=== PATIENT | male | born 1945 | race Caucasian/White ===

== ENCOUNTER 2018-07-26 10:46 | Inpatient (IN) | payer MEDICARE, OTHER ==
[~2018-07-26] VITALS: Ht 170.2 cm; Wt 60.3 kg
[2018-07-26] MEDS ORDERED: ASPIRIN 81 MG CHEW TAB PO ONE ×2 (11:15→13:15)
[2018-07-26 11:32] LABS: BASOPHILS # (AUTO) 0.1 (0.0-0.1); BASOPHILS % 1.2 % (0.0-1.0); EOSINOPHILS # (AUTO) 0.4 (0.0-0.4); EOSINOPHILS % 5.3 % (0.0-6.0); HEMATOCRIT 45.5 % (38.2-49.6); HEMOGLOBIN 14.7 g/dL (14.0-18.0); LYMPHOCYTES % 29.5 % (18.0-39.1); MEAN CORPUSCULAR HEMOGLOBIN 30.3 pg (28-32); MEAN CORPUSCULAR HGB CONC 32.3 g/dL (31-35); MEAN CORPUSCULAR VOLUME 93.8 fL (81-99); MONOCYTES # (AUTO) 0.7 (0.2-0.8); MONOCYTES % 9.6 % (4.4-11.3); NEUTROPHILS # (AUTO) 3.7 (2.1-6.9); NEUTROPHILS % 54.1 % (38.7-80.0); PLATELET COUNT 224 x10e3/uL (140-360); RED BLOOD COUNT 4.85 x10e6/uL (4.3-5.7); RED CELL DISTRIBUTION WIDTH 13.2 % (11.7-14.4)
[2018-07-26 11:51] LABS: INR 0.89; PROTHROMBIN TIME 12.5 seconds (11.9-14.5)
[2018-07-26 11:52] LABS: PARTIAL THROMBOPLASTIN TIME 26.9 seconds (23.8-35.5)
--- NOTE | 2018-07-26 11:59 | Diagnostic Imaging Report ---
EXAMINATION: CHEST SINGLE (PORTABLE) INDICATION: Shortness of breath, weakness. COMPARISON: Chest radiograph 03/25/2010. FINDINGS: TUBES and LINES: None. LUNGS: Lungs are well inflated. Mild patchy right basilar opacity, likely atelectasis. There is central vascular congestion. There is no evidence of pneumonia or pulmonary edema. PLEURA: No pleural effusion or pneumothorax. HEART AND MEDIASTINUM: The cardiomediastinal silhouette is unremarkable. There are atherosclerotic calcifications within the aorta. BONES AND SOFT TISSUES: No acute osseous abnormality. There are rotator cuff anchors in the proximal right humerus. UPPER ABDOMEN: No free air under the diaphragm. IMPRESSION: No acute radiographic abnormality. Signed by: Dr. Kamla Wilkinson MD on 07/26/2018 11:56 AM
[2018-07-26 12:04] LABS: ALANINE AMINOTRANSFERASE 23 IU/L (0-55); ALBUMIN/GLOBULIN RATIO 1.4 (0.8-2.0); ALKALINE PHOSPHATASE 66 IU/L (40-150); ANION GAP 12.9 mmol/L (8-16); BLOOD UREA NITROGEN 16 mg/dL (7-26); BUN/CREATININE RATIO 19 (6-25); CALCIUM 9.9 mg/dL (8.4-10.2); CARBON DIOXIDE 27 mmol/L (22-29); CHLORIDE 102 mmol/L (98-107); CREATINE KINASE 231 IU/L (30-200); CREATININE, SERUM 0.86 mg/dL (0.72-1.25); EST GLOMERULAR FILTRATION RATE > 60 ML/MIN (60-); GLUCOSE 106 mg/dL (74-118); POTASSIUM 3.9 mmol/L (3.5-5.1); SODIUM 138 mmol/L (136-145)
[2018-07-26 12:35] LABS: INFLUENZAE A&B ANTIGEN (RAPID) NEGATIVE (NEGATIVE); STREPTOCOCCUS GRP A ANTIGEN NEGATIVE (NEGATIVE)
[2018-07-26] MEDS ORDERED: KETOROLAC TROMETHAMINE 30 MG/ML VIAL IV STA (13:01)
[2018-07-26] MEDS ORDERED: MORPHINE SULFATE 2 MG/ML SYR 1ML IV PRN (13:15)
[2018-07-26] MEDS ORDERED: MORPHINE SULFATE INJ 4 MG/ML INJ 1ML IV PRN ×3 (13:15→13:30)
[2018-07-26] MEDS ORDERED: SODIUM CHLORIDE 0.9% 1000ML 1,000 ML IV ONE (13:15)
[2018-07-26] MEDS ORDERED: ONDANSETRON HCL INJ 2MG/ML 2ML 2 MG/ML VIAL IV PRN (13:15)
--- OUTSIDE RECORDS SUMMARY | 2018-07-26 13:50 | XMS REPORT ---
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 Allergies, Adverse Reactions, Alerts This patient has no known allergies or adverse reactions. Medications This patient has no known medications. Results Test Description Test Time Test Comments Text Results Atomic Results Result Comments CHEST SINGLE (PORTABLE) 2018-07-26 11:49:00 [facility] [address] [place] [address] Patient Name: ELVER GLORIA MR #: [id number] : 1945 Age/Sex: 73/M Req #: [id number] Adm Physician: Ordered by: HECTOR RODRIGUEZ NP Report #: [id number] Location: ER Room/Bed: Procedure: [id number] DX/CHEST SINGLE (PORTABLE) Exam Date: 07/26/18 Exam Time: 1130 REPORT STATUS: Signed EXAMINATION: CHEST SINGLE (PORTABLE) INDIC ATION: Shortness of breath, weakness. COMPARISON: Chest radiograph 03/25/2010. FINDINGS: TUBES and LINES: None. LUNGS: Lungs are well inflated. Mild patchy right basilar opacity, likely atelectasis. There is central vascular congestion. There is no evidence of pneumonia or pulmonary edema. PLEURA: No pleural effusion or pneumothorax. HEART AND MEDIASTINUM: The cardiomediastinal silhouette is unremarkable. There are atherosclerotic calcifications within the aorta. BONES AND SOFT TISSUES: No acute osseous abnormality. There are rotator cuff anchors in the proximal right humerus. UPPER ABDOMEN: No free air under the diaphragm. IMPRESSION: No acute radiographic abnormality. Signed by: Dr. Nila Verduzco MD on 07/26/2018 11:56 AM Dictated By: NILA VERDUZCO MD [id number] Transcribed By: BRENNA on 07/26/18 [id number] COPY TO: HECTOR RODRIGUEZ NP
[2018-07-26 16:00] VITALS: BP 145/90
[2018-07-26 16:03] LABS: BILIRUBIN,URINE NEGATIVE (NEGATIVE); CLARITY,URINE SL CLOUDY (CLEAR); COLOR,URINE YELLOW (YELLOW); KETONES,URINE 1+ (NEGATIVE); LEUKOCYTE ESTERASE ,URINE NEGATIVE (NEGATIVE); NITRITE,URINE NEGATIVE (NEGATIVE); PROTEIN,URINE DIPSTICK NEGATIVE (NEGATIVE); URINE UROBILINOGEN 0.2 mg/dL (0.2 - 1)
[2018-07-26 16:10] VITALS: BP 145/90
[2018-07-26 16:14] LABS: BACTERIA,URINE FEW /HPF; MUCUS,URINE MODERATE (RARE)
[2018-07-26 16:25] VITALS: BP 145/90
[2018-07-26 19:07] VITALS: BP 145/90
[2018-07-26 20:00] VITALS: BP 145/56
[2018-07-26 20:14] LABS: CREATINE KINASE MB 117.2 ng/mL (0-5.0)
[2018-07-26] MEDS ORDERED: CLOPIDOGREL BISULFATE 75 MG TAB PO STA (20:29)
[2018-07-26] MEDS ORDERED: ENOXAPARIN INJ 80 MG/0.8 ML SYR SC SCH (20:29)
[2018-07-26] MEDS ORDERED: HYDRALAZINE HCL 20 MG/ML VIAL IV PRN (20:30)
[2018-07-26] MEDS ORDERED: ACETAMINOPHEN 325 MG TAB PO PRN (20:30)
[2018-07-26] MEDS ORDERED: CLOPIDOGREL BISULFATE 300 MG TAB-DO NOT STOCK PO ONE (20:45)
[2018-07-27] VITALS (40 sets, daily range): BP systolic 87–126; BP diastolic 60–92
[2018-07-27] MEDS ORDERED: MORPHINE SULFATE INJ 4 MG/ML INJ 1ML IV PRN (01:30)
[2018-07-27 03:41] LABS: BASOPHILS % 0.2 % (0.0-1.0); HEMATOCRIT 39.6 % (38.2-49.6); HEMOGLOBIN 13.8 g/dL (14.0-18.0); LYMPHOCYTES # (AUTO) 0.6 (1.0-3.2); LYMPHOCYTES % 5.4 % (18.0-39.1); MEAN CORPUSCULAR HEMOGLOBIN 31.4 pg (28-32); MEAN CORPUSCULAR HGB CONC 34.8 g/dL (31-35); MONOCYTES # (AUTO) 0.6 (0.2-0.8); MONOCYTES % 5.6 % (4.4-11.3); NEUTROPHILS # (AUTO) 9.1 (2.1-6.9); NEUTROPHILS % 88.5 % (38.7-80.0); PLATELET COUNT 195 x10e3/uL (140-360); RED CELL DISTRIBUTION WIDTH 13.3 % (11.7-14.4)
[2018-07-27 04:01] LABS: ANION GAP 14.4 mmol/L (8-16); BLOOD UREA NITROGEN 20 mg/dL (7-26); BUN/CREATININE RATIO 25 (6-25); CALCIUM 9.1 mg/dL (8.4-10.2); CARBON DIOXIDE 22 mmol/L (22-29); CHLORIDE 106 mmol/L (98-107); CREATININE, SERUM 0.79 mg/dL (0.72-1.25); EST GLOMERULAR FILTRATION RATE > 60 ML/MIN (60-); GLUCOSE 125 mg/dL (74-118); MAGNESIUM 2.1 MG/DL (1.3-2.1); POTASSIUM 4.4 mmol/L (3.5-5.1); SODIUM 138 mmol/L (136-145)
[2018-07-27 04:23] LABS: FREE T4 (FREE THYROXINE) 0.95 ng/dL (0.9-1.8); THYROID STIMULATING HORMONE 1.592 uIU/mL (0.350-4.940)
[2018-07-27 04:36] LABS: B-TYPE NATRIURETIC PEPTIDE2 315.8 pg/mL (0-100)
[2018-07-27] MEDS ORDERED: CEFTRIAXONE SOD 1 GM/NS 50 ML 50 ML IV SCH (05:45)
[2018-07-27] MEDS ORDERED: ASPIRIN 81 MG CHEW TAB PO ONE (06:00)
[2018-07-27] MEDS ORDERED: MORPHINE SULFATE 2 MG/ML SYR 1ML IV PRN (06:00)
[2018-07-27] MEDS: SODIUM CHLORIDE 0.9% 1000ML 1,000 ML IV SCH (06:23)
[2018-07-27 06:29] LABS: CREATINE KINASE MB 433.1 ng/mL (0-5.0)
--- NOTE | 2018-07-27 06:56 | Diagnostic Imaging Report ---
EXAMINATION: CHEST SINGLE (PORTABLE) INDICATION: ^CP ^[id number] ^[id number] COMPARISON: 07/26/2018 FINDINGS: AP view TUBES and LINES: None. LUNGS: Lungs are well inflated. Central vascular congestion. There is no evidence of pneumonia. PLEURA: No pleural effusion or pneumothorax. HEART AND MEDIASTINUM: The cardiomediastinal silhouette is unremarkable. BONES AND SOFT TISSUES: No acute osseous lesion. Right humeral head anchor screws are again seen. Soft tissues are unremarkable. UPPER ABDOMEN: No free air under the diaphragm. IMPRESSION: Pulmonary vascular congestion, not significantly changed from prior exam. Signed by: Dr. Andrés Harris MD on 07/27/2018 6:52 AM
[2018-07-27] MEDS ORDERED: HEPARIN SOD (PORCINE) 1000 UNIT/ML 30ML ONE (07:03)
[2018-07-27] MEDS ORDERED: NITROGLYCERIN/D5W 200 MCG/ML 0 ML ONE (07:04)
[2018-07-27] MEDS ORDERED: MIDAZOLAM HCL 2 MG/2 ML VIAL ONE (07:04)
[2018-07-27] MEDS ORDERED: SODIUM CHLORIDE 0.9% 1000ML 1,000 ML ONE (07:04)
[2018-07-27] MEDS ORDERED: LIDOCAINE HCL 2% LOCAL 20 ML VIAL ONE (07:04)
[2018-07-27] MEDS ORDERED: FENTANYL CITRATE/PF 100MCG/2 ML INJ ONE (07:04)
[2018-07-27] MEDS ORDERED: IOPAMIDOL 370 MG/ML 200 ML INFUS..BTL INJ ONE ×4 (07:04→08:26)
[2018-07-27] MEDS ORDERED: HEPARIN SOD/SOD CHLORIDE 2,000 ML ONE (07:04)
[2018-07-27] MEDS: FAMOTIDINE 20 MG TAB PO SCH ×2 (07:30→15:58)
--- NOTE | 2018-07-27 07:41 | Consultation ---
DATE OF CONSULTATION: 07/27/2018 Cardiac Consultation. REASON FOR CONSULTATION: Elevated troponin. HISTORY: A 73-year-old gentleman, very healthy, very active. He usually exercises 2 mile per day. He noted in the last few days he is unable to do it, he needs to stop so frequently because of chest tightness. [place], [place] the [place], he had severe chest pain with diaphoresis. He came to the emergency room. Admitted for further management. Consultation received late evening when troponin is elevated. The patient was given aspirin in the ER. I loaded him with Plavix and Lovenox. The patient is seen and evaluated. His symptoms are very typical for coronary artery disease. Beside that, the patient denied having any symptoms. In fact, he does have strong family history, but his grandmother from mother's side, his all uncles from mother's side all or have heart attack or during bypass surgery in their 50s and 60s. However, they did not take care of themselves and there were smoker and overweight. REVIEW OF SYSTEMS: Extensive to all systems, only pertinent positive and negative ones will be mentioned. CARDIAC: As per above. PULMONARY: No cough. No hemoptysis. GI: No hematemesis. No melena. : No hematuria. No dysuria. MUSCULOSKELETAL: No aches. No pain. GENERAL: No fever. No chills. SOCIAL HISTORY: He is nonsmoker, not alcohol drinker. . Retired from [employer]. HOME MEDICATIONS: None. ALLERGIES: NONE. PAST MEDICAL HISTORY: Right rotator cuff surgery, left inguinal hernia surgery, ear cancer and skin grafting. FAMILY HISTORY: As described above. Cancer is common in his family, but on his mother side there is strong family history of coronary artery disease. PHYSICAL EXAMINATION: VITAL SIGNS: Height of 5 feet 7 inches, weight of 162 pounds. Blood pressure 120/80, heart rate of 60, respiratory rate of 18. HEENT: Pupils are equal and reactive. NECK: No elevation of jugular venous pulsation. No bruit. CHEST: Clear to auscultation and percussion. HEART: PMI 5th left intercostal space. Normal first and second heart sound. ABDOMEN: Soft with good bowel sounds. EXTREMITIES: No cyanosis. No clubbing. No edema. LAB DATA: As per chart. IMPRESSION AND PLAN: Non-ST elevation myocardial infarction. Treatment will be urgent invasive approach. Procedure risks, benefits, alternatives are discussed and explained. Questions are answered. MD HILDA Jacobson/MODL /[id number]
[2018-07-27] MEDS ORDERED: ATROPINE SULFATE 0.1 MG/ML 10ML SYR ONE (07:52)
[2018-07-27] MEDS ORDERED: SODIUM CHLORIDE 0.9% 50ML 50 ML ONE (08:00)
[2018-07-27] MEDS ORDERED: BIVALRIUDIN 250 MG/VIAL VIAL IV ONE (08:00)
[2018-07-27] MEDS ORDERED: EPTIFIBATIDE 20 ML ONE (08:05)
[2018-07-27] MEDS ORDERED: EPTIFIBATIDE 75mg 100ML 100 ML ONE (08:16)
[2018-07-27] MEDS ORDERED: CLOPIDOGREL BISULFATE 75 MG TAB ONE (08:44)
[2018-07-27] MEDS ORDERED: ASPIRIN 325 MG TAB ONE (08:44)
[2018-07-27] MEDS ORDERED: ASPIRIN 325 MG TAB PO SCH (09:00)
[2018-07-27] MEDS ORDERED: ONDANSETRON HCL INJ 2MG/ML 2ML 2 MG/ML VIAL IV PRN (09:15)
[2018-07-27] MEDS ORDERED: EPTIFIBATIDE 75mg 100ML 100 ML IV SCH (09:30)
[2018-07-27] MEDS: CEFTRIAXONE SOD 1 GM/NS 50 ML 50 ML IV SCH (10:58)
--- NOTE | 2018-07-27 12:17 | Operative Report ---
DATE OF PROCEDURE: 07/27/2018 SURGEON: Violeta Hodges MD TITLE OF PROCEDURE: 1. Left cardiac catheterization. 2. PCI and stenting of totally occluded ostial LAD. TECHNICAL DETAILS: After the usual sterile preparation and draping procedure, intravenous Versed and fentanyl given for sedation, local xylocaine for local anesthesia. A four-Welsh sheath established in place. Mariano left 4 and 3DRC catheters to engage the coronary, pigtail for hemodynamic measurement and left ventriculogram. We elected to do PCI. We changed the sheath from 4 to 7-Welsh because of the location of totally LAD occluded coming from the left main ostially. A seven-Welsh guide XB 3.5 LAD is used. The lesion was crossed, balloon was 2.5 x 12 and then 2.5 x 20 balloon that balloon ruptured. Subsequently, we stented that lesion using 2.5 x 38 resolute amalia stent up to 24 atmosphere diameter little bit greater than 3 mm. This sheath was removed. VASCADE was not deployed because of the patient very skinny. Manual pressure was applied. The patient given Angiomax and Integrilin and he will be in Integrilin. The patient already received Plavix and he will be on maintenance aspirin and Plavix. There were no complications and no blood loss. RESULTS: A. Coronary angiogram: 1. Left main free of disease. 2. LAD very ostially 80% and totally occluded, heavily calcified arteries. 3. Circumflex, codominant artery was minimal plaquing. 4. Right coronary artery giving mainly small PDA. There are several lesion proximally at 40% distally at 50% to 60%. No collateral to the LAD noted. 5. Left ventriculogram in the right on two oblique view showed normal size ventricle, ejection fraction of 35 with akinetic, anterior and apical segments. a. Hemodynamics: Aorta pressure 120/80. LV pressure 120/34. PCI procedure, guiding catheter, seven-Welsh XB 3.5 balloon is 2.5 x 12 and 2.5 x 20, stent 2.5 x 38. These are prior to intervention at 100%, there was very large burden of clot. The clot was mashed and pushed all the way to the distal LAD. Subsequent stenting was done using 2.5 x 38 on extent up to 24 atmosphere. Lesion prior to intervention at 100% following intervention at 0%. COMPLICATION: None. BLOOD LOSS: None. MD ANTIONETTE Jacobson /[id number]
[2018-07-27] MEDS ORDERED: ZOLPIDEM TARTRATE 5 MG TAB PO PRN (21:00)
[2018-07-27] MEDS ORDERED: ATORVASTATIN 20 MG TAB PO SCH (21:00)
[2018-07-27] MEDS: ATORVASTATIN 20 MG TAB PO SCH (21:10)
[2018-07-28] VITALS (14 sets, daily range): BP systolic 85–122; BP diastolic 54–84
[2018-07-28] MEDS: SODIUM CHLORIDE 0.9% 1000ML 1,000 ML IV SCH ×2 (02:00→22:18)
[2018-07-28 05:49] LABS: BASOPHILS % 0.2 % (0.0-1.0); EOSINOPHILS % 0.1 % (0.0-6.0); HEMATOCRIT 38.7 % (38.2-49.6); HEMOGLOBIN 13.4 g/dL (14.0-18.0); LYMPHOCYTES # (AUTO) 0.8 (1.0-3.2); LYMPHOCYTES % 7.3 % (18.0-39.1); MEAN CORPUSCULAR HEMOGLOBIN 31.1 pg (28-32); MEAN CORPUSCULAR HGB CONC 34.6 g/dL (31-35); MEAN CORPUSCULAR VOLUME 89.8 fL (81-99); MONOCYTES # (AUTO) 1.2 (0.2-0.8); MONOCYTES % 10.6 % (4.4-11.3); NEUTROPHILS # (AUTO) 8.8 (2.1-6.9); NEUTROPHILS % 81.4 % (38.7-80.0); PLATELET COUNT 151 x10e3/uL (140-360); RED BLOOD COUNT 4.31 x10e6/uL (4.3-5.7); RED CELL DISTRIBUTION WIDTH 13.3 % (11.7-14.4)
[2018-07-28 06:35] LABS: ANION GAP 11.7 mmol/L (8-16); BLOOD UREA NITROGEN 20 mg/dL (7-26); BUN/CREATININE RATIO 27 (6-25); CALCIUM 8.8 mg/dL (8.4-10.2); CARBON DIOXIDE 24 mmol/L (22-29); CHLORIDE 103 mmol/L (98-107); CREATINE KINASE 1849 IU/L (30-200); CREATININE, SERUM 0.73 mg/dL (0.72-1.25); EST GLOMERULAR FILTRATION RATE > 60 ML/MIN (60-); GLUCOSE 96 mg/dL (74-118); MAGNESIUM 1.9 MG/DL (1.3-2.1); POTASSIUM 4.7 mmol/L (3.5-5.1); SODIUM 134 mmol/L (136-145)
[2018-07-28 07:28] LABS: ALANINE AMINOTRANSFERASE 70 IU/L (0-55); ALBUMIN 3.2 g/dL (3.5-5.0); ALBUMIN/GLOBULIN RATIO 1.3 (0.8-2.0); ALKALINE PHOSPHATASE 53 IU/L (40-150)
[2018-07-28] MEDS: FAMOTIDINE 20 MG TAB PO SCH ×2 (07:30→16:55)
[2018-07-28] MEDS: CLOPIDOGREL BISULFATE 75 MG TAB PO SCH (08:43)
[2018-07-28] MEDS: ASPIRIN 325 MG TAB PO SCH (08:43)
[2018-07-28] MEDS: CEFTRIAXONE SOD 1 GM/NS 50 ML 50 ML IV SCH (10:00)
[2018-07-28] MEDS: METOPROLOL SUCCINATE 25 MG TAB XL PO SCH (12:55)
[2018-07-28] MEDS: ATORVASTATIN 20 MG TAB PO SCH (21:43)
[2018-07-29] VITALS: BP 100/72
[2018-07-29 03:30] LABS: BASOPHILS % 0.5 % (0.0-1.0); EOSINOPHILS # (AUTO) 0.1 (0.0-0.4); HEMATOCRIT 37.3 % (38.2-49.6); LYMPHOCYTES # (AUTO) 0.8 (1.0-3.2); LYMPHOCYTES % 10.5 % (18.0-39.1); MEAN CORPUSCULAR HGB CONC 34.9 g/dL (31-35); MEAN CORPUSCULAR VOLUME 88.8 fL (81-99); MONOCYTES % 12.1 % (4.4-11.3); NEUTROPHILS # (AUTO) 5.9 (2.1-6.9); NEUTROPHILS % 75.4 % (38.7-80.0); PLATELET COUNT 140 x10e3/uL (140-360); RED CELL DISTRIBUTION WIDTH 13.5 % (11.7-14.4)
[2018-07-29 03:48] LABS: ANION GAP 10.7 mmol/L (8-16); BLOOD UREA NITROGEN 14 mg/dL (7-26); BUN/CREATININE RATIO 20 (6-25); CALCIUM 8.4 mg/dL (8.4-10.2); CARBON DIOXIDE 23 mmol/L (22-29); CHLORIDE 105 mmol/L (98-107); EST GLOMERULAR FILTRATION RATE > 60 ML/MIN (60-); GLUCOSE 86 mg/dL (74-118); MAGNESIUM 1.7 MG/DL (1.3-2.1); SODIUM 135 mmol/L (136-145)
[2018-07-29 03:51] LABS: POTASSIUM 3.7 mmol/L (3.5-5.1)
[2018-07-29 04:00] VITALS: BP 109/72
[2018-07-29 08:30] VITALS: BP 112/78
[2018-07-29 08:50] VITALS: BP 112/78
[2018-07-29] MEDS ORDERED: LOSARTAN POTASSIUM 25 MG TAB PO SCH (09:00)
[2018-07-29] MEDS: ASPIRIN 325 MG TAB PO SCH (09:02)
[2018-07-29] MEDS: FAMOTIDINE 20 MG TAB PO SCH (09:02)
[2018-07-29] MEDS: METOPROLOL SUCCINATE 25 MG TAB XL PO SCH (09:03)
[2018-07-29] MEDS: CLOPIDOGREL BISULFATE 75 MG TAB PO SCH (09:03)
[2018-07-29] MEDS: CEFTRIAXONE SOD 1 GM/NS 50 ML 50 ML IV SCH (09:03)
[2018-07-29] MEDS ORDERED: LIPITOR20 MG PO (10:54)
[2018-07-29] MEDS ORDERED: CEFUROXIME250 MG PO (10:54)
[2018-07-29] MEDS ORDERED: COZAAR25 MG PO (10:54)
[2018-07-29] MEDS ORDERED: ASPIRIN EC81 MG PO (10:54)
[2018-07-29] MEDS ORDERED: PLAVIX75 MG PO (10:54)
[2018-07-29] MEDS ORDERED: TOPROL XL25 MG PO (10:54)
--- NOTE | 2018-07-30 05:51 | Discharge Summary ---
PERTINENT HISTORY AND PHYSICAL FINDINGS: Mr. Hines is a 73-year-old male, who complains of constant chest pressure, located in the substernal and left chest that began on 07/26/2018 while walking around the mall. He had associated shortness of breath, diaphoresis, and weakness. The pain did not radiate and was slightly improved with morphine. He denied nausea, vomiting, or dizziness on admission. PAST MEDICAL HISTORY: No stated past medical history. PAST SURGICAL HISTORY: Included right rotator cuff surgery, left inguinal hernia repair. FAMILY HISTORY: Mother, father, aunts, and uncles had cancer. Uncle had ME x3. Mother and father also had ME. SOCIAL HISTORY: Denied any tobacco, alcohol, or illicit drug use. ALLERGIES: NO KNOWN ALLERGIES. ADMITTING DIAGNOSES: 1. Lcw-EK-yerwserug myocardial infarction. 2. Acute systolic congestive heart failure. 3. Urinary tract infection. 4. The patient's rhythm was sinus bradycardia with the heart rate of 53 with inverted T-wave. Per Dr. Hodges's consultation note, the patient is very healthy, usually exercises 2 miles per day. Needed to stop frequently because of chest tightness. The patient was given aspirin in the emergency room and subsequently loaded with Plavix and Lovenox. DISCHARGE DIAGNOSES: 1. Fxf-TO-sqhhnacwl myocardial infarction. 2. Acute systolic congestive heart failure. 3. Urinary tract infection. 4. The patient's rhythm was sinus bradycardia, the heart rate of 53 with inverted T-wave. Per Dr. Hodges's consultation note, the patient is very healthy, usually exercises 2 miles per day. Needed to stop frequently because of chest tightness. The patient was given aspirin in the emergency room and subsequently loaded with Plavix and Lovenox. LABORATORY DATA: On admission, WBC 6.84, hemoglobin 14.7, hematocrit 45.5, and platelets 224. PT 12.5. INR 0.89. BUN 16 and creatinine 0.86. GFR greater than 60 with normal electrolytes. AST 36. Creatinine kinase 231. CK-MB 4.7. Troponin I 0.018. BNP 43.8. Subsequent creatinine kinase 722 and 2333. Subsequent CK-MB 117.2 and 33.1. Subsequent troponin I of 4.121 and 31.833. BNP today 503.3. Sodium 135, potassium 3.7, BUN 14, creatinine 0.7. GFR greater than 60. Magnesium 1.7. Throat culture had shown usual respiratory mayra present. Urine culture had shown no growth at 36 to 48 hours; however, the UA that had been collected on 07/26/2018 showed a specific gravity of 1.03, ketones 1+, wbc's 6-10, mucus moderate, negative for nitrite, negative for leukocyte esterase. Continue antibiotics at home. The patient underwent a left heart cath on 07/27/2018, of the LAD stent, which was drug-eluting. On 07/27/2018, triglycerides 53, cholesterol 177, LDL 106, HDL 60. Chest x-ray yesterday had shown pulmonary vascular congestion without significant change from prior exam. Case was discussed with JUDAH Harris, with Dr. Hodges. From Cardiology standpoint, the patient will be discharged home. His ejection fraction was 35% on 07/27/2018 echocardiogram. The patient will be discharged on aspirin 81 mg p.o. daily, cefuroxime 500 mg p.o. b.i.d., losartan 12.5 mg p.o. daily, metoprolol 12.5 p.o. daily, Plavix 75 mg p.o. daily, and atorvastatin 20 mg daily. DIET: Continue cardiac diet. ACTIVITY LEVEL: As tolerated. FOLLOWUP: Followup with PCP, Dr. Sherman Conteh in one to two weeks and followup with Cardiology in one week. Dictated by Jackson Porter NP Sherman Foreman MD HWP/MODL /[id number]
== END 2018-07-29 12:23 | disposition home or self-care (01) | DRG 246 ==
LOC: ER 10:46 → ERHOLD 13:47 → IMCU 15:46 → ICU 07-27 08:34 → OBSVTOIN 07-27 09:10 → MED/SURG 07-28 15:29
PROVIDERS: ADMIT Internal Medicine; ATTEND Internal Medicine
PROC: 027034Z Dilation of Coronary Artery, One Artery with Drug-eluting Intraluminal Device, Percutaneous Approach (ICD-10-PCS; principal; 2018-07-27)
PROC: 4A023N7 Measurement of Cardiac Sampling and Pressure, Left Heart, Percutaneous Approach (ICD-10-PCS; 2018-07-27)
PROC: B2111ZZ Fluoroscopy of Multiple Coronary Arteries using Low Osmolar Contrast (ICD-10-PCS; 2018-07-27)
PROC: B2151ZZ Fluoroscopy of Left Heart using Low Osmolar Contrast (ICD-10-PCS; 2018-07-27)
DX: I21.4 Non-ST elevation (NSTEMI) myocardial infarction (principal); I50.23 Acute on chronic systolic (congestive) heart failure; N39.0 Urinary tract infection, site not specified; I11.0 Hypertensive heart disease with heart failure; I25.10 Atherosclerotic heart disease of native coronary artery without angina pectoris
CPT/HCPCS: 36415; 71045; 80048; 80053; 80061; 81001; 82550; 82553; 83036; 83518; 83735; 83880; 84439; 84443; 84484; 85025; 85610; 85730; 87070; 87086; 87400; 92928; 93005; 93306; 93458; 99284; C1725; C1760; C1766; C1874; G0378; J0583; J0696; J1327; J1644; J1650; J1885; J2001; J2250; J2270; J7030; Q9967